=== PATIENT | female | born 1945 | race Caucasian/White ===

== ENCOUNTER 2023-08-12 07:36 | Day surgery (SDC) | payer MEDICARE ==
[2023-08-12] MEDS ORDERED: Ascorbic Acid 500 mg Chewable Tablet ONE (08:42)
[2023-08-12] MEDS ORDERED: Aspirin 325 MG TAB ONE (08:42)
[2023-08-12 08:50] LABS: #Basophils 0.1 10x3/uL (0.0-0.2); #Eosinphils 0.2 10x3/uL (0.0-0.5); #Monocytes 0.4 10x3/uL (0.0-1.1); #Neutrophils 2.7 10x3/uL (1.5-8.4); %Basophils 1.1 % (0.0-2.0); %Eosinophils 4.1 % (0.0-6.0); %Monocytes 9.4 % (0.0-10.0); %Neutrophils 57.5 % (40.0-75.0); Hematocrit 37.6 % (34.9-44.5); Hemoglobin 12.5 g/dL (12.0-15.5); Mean Corpuscular HGB CONC 33.2 g/dL (32.0-36.0); Mean Corpuscular Hemoglobin 31.5 pg (27.0-33.0); Mean Corpuscular Volume 94.7 fl (81.6-98.3); Mean Platelet Volume 11.2 fl (7.4-10.4); Platelet Count 195 10x3/uL (150-450); RBC Distribution Width 12.7 % (11.5-14.5); Red Blood Cell (RBC) Count 3.97 10x6/uL (3.90-5.03); White Blood Cell (WBC) Count 4.7 10x3/uL (3.5-10.5)
[2023-08-12 09:01] LABS: PTT 30.4 sec (22.0-33.0); Prothrombin Time 10.6 sec (9.5-12.1)
[2023-08-12 09:07] VITALS: BP 176/83; TEMP 98.8
[2023-08-12 09:09] LABS: ALT (SGPT) 20 U/L (8-55); AST (SGOT) 21 U/L (5-34); Albumin 4.4 g/dL (3.4-4.8); Alkaline Phosphatase 93 U/L (40-110); Anion Gap 13 mmol/L (10-20); BUN (Urea Nitrogen) 13 mg/dL (9.8-20.1); Bilirubin, Total 0.5 mg/dL (0.2-1.2); Calc. Creatinine Clearance 65 mL/min (70-130); Calcium 10.5 mg/dL (7.8-10.44); Carbon Dioxide 26 mmol/L (23-31); Chloride 107 mmol/L (98-107); Estimated GFR 76; Globulin 3.9 g/dL (2.4-3.5); Glucose 100 mg/dL (83-110); Potassium 4.2 mmol/L (3.5-5.1); Protein, Total 8.3 g/dL (5.8-8.1); Sodium 142 mmol/L (136-145)
[2023-08-12] MEDS ORDERED: Lidocaine 1% (PF) 30 ML VIAL ONE (09:24)
[2023-08-12] MEDS ORDERED: Heparin 10,000 UNITS/ 10 ML VIAL ONE (09:24)
[2023-08-12] MEDS ORDERED: Nitroglycerin 50 MG/250 ML BOT 0 ML ONE (09:24)
[2023-08-12] MEDS ORDERED: fentaNYL 50 mcg/mL 1 mL Vial ONE (09:24)
[2023-08-12] MEDS ORDERED: Midazolam HCl 2 mg/2 ml Vial ONE (09:24)
[2023-08-12] MEDS ORDERED: Iopamidol 300 61% 100 ML VIAL FS ONE (09:53)
[2023-08-12] MEDS ORDERED: FLU VACC QS2023(65UP)/MF59C/PF 60 MCG/0.5 ML SYRINGE IM ONE (10:00)
[2023-08-12] MEDS ORDERED: Atropine Sulfate 1 mg/1 ml Vial ONE (11:08)
== END 2023-08-12 13:40 | disposition home or self-care (01) ==
LOC: CSHCCL 07:36
PROVIDERS: ATTEND Specialist
PROC: 4A023N7 Measurement of Cardiac Sampling and Pressure, Left Heart, Percutaneous Approach (ICD-10-PCS; principal; 2023-08-12)
DX: R94.39 Abnormal result of other cardiovascular function study (principal); I25.10 Atherosclerotic heart disease of native coronary artery without angina pectoris; I44.7 Left bundle-branch block, unspecified; I10 Essential (primary) hypertension; E78.2 Mixed hyperlipidemia; Z86.16 Personal history of COVID-19; Z90.49 Acquired absence of other specified parts of digestive tract; Z88.1 Allergy status to other antibiotic agents; Z88.6 Allergy status to analgesic agent; Z88.2 Allergy status to sulfonamides; Z91.048 Other nonmedicinal substance allergy status; Z88.8 Allergy status to other drugs, medicaments and biological substances; Z79.899 Other long term (current) drug therapy; Z79.82 Long term (current) use of aspirin
CPT/HCPCS: 71045; 80053; 85025; 85610; 85730; 93458; C1760; C1769; J3010; 93005; 93010; 99152; J0461; J1644; J2001; J2250; Q9967